=== PATIENT | male | born 1970 | race Caucasian/White ===

== ENCOUNTER 2025-05-08 11:23 | Emergency (ER) | payer OTHER, SELFPAY ==
[2025-05-08 11:26] VITALS: BP 126/76
--- NOTE | 2025-05-08 11:57 | ED.MUSCINJ ---
HPI-Injury
General
Chief Complaint: Musculo-Skeletal Complaint
Source: patient
Exam Limitations: none
Time Seen by Provider: 05/08/25 11:44
History of Present Illness-Injury
Initial Injury comments:
55-year-old otherwise healthy male presents with the onset of right sided neck pain shoots up his face starting yesterday sharp in nature without associated headache vision change or dizziness. He states its tender to the touch right over his
carotid artery. No associated chest pain back pain or arm symptoms. The pain has been persistent. He took ibuprofen which seemed to help slightly. He is not anticoagulated. No other complaints at this time. He was seen by the family doctor and
sent here for further evaluation
Past History
Past History
ED Past Medical History: Other (kidney stone)
ED Past Surgical History: None
Phy Exam
Physical Exam
Physical Exam:
General: Well-appearing male no acute respiratory distress
HEENT normal cephalic atraumatic posterior pharynx patent no asymmetry neck is supple no adenopathy vascular exam: No bruits heard in the neck however the patient is tender to the right anterior neck just over lying the carotid. The carotid pulses
palpable however this is reproducing pain no obvious salivary gland enlargment
Heart: Regular rate and rhythm
Lungs: Clear no wheeze
Extremities: No sign of
Injury Course
Orders/Labs/Results
Orders:
Orders
05/08/25 11:53
Electrocardiogram (*1) Urgent
Reason for Study: Chest Pain
EKG- Treatment ONCE
05/08/25 11:57
CT Neck Angio W/wo Iv Contrast Urgent
Comment:
Reason For Exam: right carotid tenderness
Complete Blood Count/With Diff Urgent
Comprehensive Metabolic Panel Urgent
Troponin I Urgent
Abnormal Lab Results
05/08/25
11:57
RBC 4.22 L 10^6/uL
(4.70-6.10)
Hct 38.8 L %
(39.0-52.0)
MCH 32.9 H pg
(27.0-31.0)
Chloride 108 H mmol/L
(98-107)
05/08/25 11:57
05/08/25 11:57
MDM/Problems Addressed
Differential Diagnosis Includes:
Right anterior neck pain, atypical. No associated paresthesias to suggest radiculopathy. He is tender right over the carotid. Question Geo carotid lymph node inflammation versus deep space abscess versus carotid artery dissection
No neurologic symptoms on exam. Will check labs EKG and troponin. Will order CT angiogram of the neck to evaluate for carotid artery
*Pulse Oximetry
SaO2: 100
Oxygen Mode of Delivery: Room air
Patient hypoxic: no
*Critical Care Note
Total Time (30-74mins, 75-104mins- exclusive of procedures): Not Applicable
Update Note
Update Note:
CT angio of the neck negative for acute finding. Patient reassured EKG and troponin undetectable and normal. No obvious lymph nodes or salivary gland enlargement on CT angio. Given reassuring workup we will treat as cervical strain. He has noted
improvement with ibuprofen. Will have him continue this and have him follow-up with orthopedics. No indication for admission
ED Attending Note
-
Portions of this chart may have been created with voice recognition software.� Occasional wrong word or��sound alike� substitutions may have occurred due to the inherent limitations of voice recognition software.
Discharge Plan
Departure
Patient Disposition: Home (Routine Discharge)
Date of Disposition: 05/08/25
Time of Disposition: 14:07
Patient with high blood pressure during this ER visit?: No
Discharge Problem:
Cervical strain
Instructions: Muscle and Bone Pain (DC)
Prescriptions:
No Action
red yeast rice 600 MG tablet
600 mg PO DAILY
cephalexin 500 MG capsule
500 mg PO QID Qty: 20 0RF
Referrals:
Michael Barnett MD [Family Provider, Family Practice]
Activity Restrictions/Additional Instructions:
Continue with ibuprofen. Use warm compresses to the area. Return if worse otherwise follow-up with your doctor
Interventions
Interventions:
*Risk Screen - Suicide Last Done: 05/08/25 11:30
*Neglect/Abuse Screening Last Done: 05/08/25 11:30
ED-Musculoskeletal Assessment Last Done: 05/08/25 11:58
Discharge Date and Time
Print Language: GEORGIAN
[2025-05-08 11:58] VITALS: BMI 25.6
[2025-05-08 12:10] LABS: Hematocrit 38.8 % (39.0-52.0); Hemoglobin 13.9 g/dL (13.0-18.0); Mean Corp Hgb Conc. 35.8 g/dL (33.0-37.0); Mean Corpuscular Volume 91.9 fL (80.0-94.0); Nucleated Red Blood Cells % 0 % (-); Platelet Count 193 10^3/uL (130-400); Red Cell Dist. Width 12.2 % (11.5-14.5)
[2025-05-08 12:28] LABS: ALT (SGPT) 30 U/L (0-50); AST (SGOT) 24 U/L (17-59); Albumin 4.5 g/dl (3.5-5.0); Alkaline Phosphatase 52 U/L (38-126); Blood Urea Nitrogen 16 mg/dl (9-20); Calcium 9.2 mg/dl (8.4-10.2); Carbon Dioxide 26 mmol/L (22-30); Chloride 108 mmol/L (98-107); Estimated Creatinine Clearance 84 ml/min; Glucose 93 mg/dl (70-99); Potassium 4.4 mmol/L (3.5-5.1); Sodium 140 mmol/L (135-145); Total Protein 6.6 g/dl (6.3-8.2); eGFR > 60.00
[2025-05-08 12:40] LABS: Troponin I < 0.012 ng/ml
== END 2025-05-08 14:19 | disposition home or self-care (01) ==
LOC: EMR 11:23
PROVIDERS: Physician Assistant; EMERGENCY PHYSICIAN Emergency Medicine; FAMILY PHYSICIAN Family Medicine
DX: S16.1XXA Strain of muscle, fascia and tendon at neck level, initial encounter (principal); X58.XXXA Exposure to other specified factors, initial encounter; Z87.442 Personal history of urinary calculi
CPT/HCPCS: 99284; 70498; 80053; 84484; 85025; 93005; Q9967